=== PATIENT | male | born 1975 | race Caucasian/White ===

== ENCOUNTER 2017-06-25 21:51 | Emergency (ER) | payer BC, OTHER ==
[2017-06-25 21:57] VITALS: BP 169/91; PULSE 83; TEMP 98.4; BMI 37.2
--- NOTE | 2017-06-25 22:37 | PDOC ---
History of Present Illness - General History Source: Patient Exam Limitations: No Limitations - History of Present Illness Initial Comments: The patient is a 41 yo M with a past medical history significant for HTN, GERD, mitral regurg who presents with shooting L chest and L arm pain. The patient states the pain comes every 10 seconds. The patient states he pulled his daughter out of a canal she fell in 2 days ago. The patient also notes he just got back from a trip to [place] yesterday. The patient also notes his father and cousin presented with similar symptoms and were both diagnosed with ID. The patient denies lightheadedness and palpitations. The patient denies nausea, vomiting, diarrhea and abdominal pain. The patient denies fevers and chills. PCP: Dr. Emil Hector <Estefanía Tompkins - Last Filed: 06/25/17 22:48> <Valentine Kenny - Last Filed: 06/26/17 02:13> - General Chief Complaint: Pain Stated Complaint: PAIN IN LT ARM Time Seen by Provider: 06/25/17 22:13 Past History <Estefanía Tompkins - Last Filed: 06/25/17 22:48> - Past Medical History HTN: Yes Suicide Attempt (Hx): No - Psycho/Social/Smoking Cessation Hx Anxiety: No Suicidal Ideation: No Smoking Status: No Smoking History: Never smoked Number of Cigarettes Smoked Daily: 0 <Valentine Kenny - Last Filed: 06/26/17 02:13> - Past Medical History Allergies/Adverse Reactions: Allergies Allergy/AdvReac Type Severity Reaction Status Date / Time No Known Allergies Allergy Verified 06/25/17 21:57 Home Medications: Ambulatory Orders Amlodipine Besylate [Norvasc -] 10 mg PO DAILY 06/26/17 Hydrochlorothiazide [Hctz -] 12.5 mg PO BID 06/26/17 Metoprolol/Hydrochlorothiazide [Lopressor Hct 50-25 Tablet] 1 each PO BID Pantoprazole Sodium 40 mg PO DAILY 06/26/17 Review of Systems - Review of Systems Able to Perform ROS?: Yes Comments:: GENERAL/CONSTITUTIONAL: No fever or chills. No weakness. HEAD, EYES, EARS, NOSE AND THROAT: No change in vision. No ear pain or discharge. No sore throat. CARDIOVASCULAR: +chest pain, shooting L arm pain. No shortness of breath. RESPIRATORY: No cough, wheezing, or hemoptysis. GASTROINTESTINAL: No nausea, vomiting, diarrhea or constipation. GENITOURINARY: No dysuria, frequency, or change in urination. MUSCULOSKELETAL: No joint or muscle swelling or pain. No neck or back pain. SKIN: No rash NEUROLOGIC: No headache, vertigo, loss of consciousness, or change in strength/ sensation. ENDOCRINE: No increased thirst. No abnormal weight change. HEMATOLOGIC/LYMPHATIC: No anemia, easy bleeding, or history of blood clots. ALLERGIC/IMMUNOLOGIC: No hives or skin allergy. <Estefanía Tompkins - Last Filed: 06/25/17 22:48> *Physical Exam - Vital Signs Last Vital Signs Temp Pulse Resp BP Pulse Ox 98.4 F 83 18 169/91 99 06/25/17 21:53 06/25/17 21:53 06/25/17 21:53 06/25/17 21:53 06/25/17 21:53 <Estefanía Tompkins - Last Filed: 06/25/17 22:48> - Vital Signs Last Vital Signs Temp Pulse Resp BP Pulse Ox 98.4 F 83 18 169/91 99 06/25/17 21:53 06/25/17 21:53 06/25/17 21:53 06/25/17 21:53 06/25/17 21:53 - Physical Exam Comments: GENERAL: Awake, alert, and fully oriented, in no acute distress HEAD: No signs of trauma EYES: PERRLA, EOMI, sclera anicteric, conjunctiva clear ENT: Auricles normal inspection, hearing grossly normal, nares patent, oropharynx clear without exudates. Moist mucosa NECK: Normal ROM, supple, no lymphadenopathy, JVD, or masses LUNGS: Breath sounds equal, clear to auscultation bilaterally. No wheezes, and no crackles HEART: Regular rate and rhythm, normal S1 and S2, no murmurs, rubs or gallops ABDOMEN: Soft, nontender, normoactive bowel sounds. No guarding, no rebound. No masses EXTREMITIES: Normal range of motion, no edema. No clubbing or cyanosis. No cords, erythema, or tenderness NEUROLOGICAL: Cranial nerves II through XII grossly intact. Normal speech, normal gait SKIN: Warm, Dry, normal turgor. +Vesicular rash in dermatomal distribution to L arm. <Valentine Kenny - Last Filed: 06/26/17 02:13> Heart Score/ECG Review - History History: Slightly suspicious - Electrocardiogram EKG: Normal - Age Age: </= 45 - Risk Factors Risk Factors Heart Score: Yes Hx Hypertension, Yes Positive family hx of cardiac disease Based on the list above the patient has:: 1-2 risk factors - Troponin Troponin: </= normal limit - Score Heart Score - Total: 1 - ECG Impressions Comment:: EKG read 22:46- NSR 85 bpm. +LVH. <Valentine Kenny - Last Filed: 06/26/17 02:13> ED Treatment Course - LABORATORY CBC & Chemistry Diagram: 06/25/17 23:11 06/25/17 23:11 <Valentine Kenny - Last Filed: 06/26/17 02:13> *DC/Admit/Observation/Transfer - Attestations Scribe Attestion: Documentation prepared by Estefanía Tompkins, acting as medical oncologist for Valentine Kenny MD, MD/DO. <Estefanía Tompkins - Last Filed: 06/25/17 22:48> - Discharge Dispostion Admit: No <Valentine Kenny - Last Filed: 06/26/17 02:13> Diagnosis at time of Disposition: Shingles Qualifiers: Herpes zoster complications: without complications Qualified Code(s): B02.9 - Zoster without complications - Discharge Dispostion Disposition: HOME Condition at time of disposition: Stable - Referrals Referrals: Emil Majano [Primary Care Provider] - - Patient Instructions Printed Discharge Instructions: DI for Shingles
[2017-06-26 00:25] LABS: BASOPHIL 1.1 % (0-2.0); EOSINOPHIL 2.4 % (0-4.5); MCH 28.3 pg (25.7-33.7); MCHC 34.2 g/dl (32.0-35.9); MEAN CELL VOLUME 82.9 fl (80-96); MEAN PLT VOLUME 9.7 fl (7.5-11.1); PLATELET COUNT 193 K/MM3 (134-434); RDW 15.2 % (11.9-15.9); WHITE BLOOD COUNT 5.5 K/mm3 (4.0-10.0)
[2017-06-26 00:55] LABS: ALBUMIN 3.8 g/dl (3.4-5.0); ALK PHOS 64 U/L (45-117); ANION GAP 9 (8-16); BILIRUBIN,TOTAL 0.4 mg/dL (0.2-1.0); CALCIUM 8.7 mg/dL (8.5-10.1); CO2 29 mmol/L (21-32); GLUCOSE,RANDOM 94 mg/dL (74-106); SGOT/AST 32 U/L (15-37); SGPT/ALT 68 U/L (12-78); TOT PROT 7.3 g/dl (6.4-8.2)
[2017-06-26 00:58] LABS: CPK 92 IU/L (39-308); TROPONIN I < 0.02 ng/ml (0.00-0.05)
--- NOTE | 2017-06-26 17:37 | EKG ---
Test Reason : Blood Pressure : / mmHG Vent. Rate : 085 BPM Atrial Rate : 085 BPM P-R Int : 146 ms QRS Dur : 100 ms QT Int : 370 ms P-R-T Axes : 021 016 005 degrees QTc Int : 440 ms NORMAL SINUS RHYTHM MINIMAL VOLTAGE CRITERIA FOR LVH, MAY BE NORMAL VARIANT POOR R PROGRESSION V1-V3 MAY BE DUE TO TECHNICAL AND OR POSTIONAL REASONS,CANNOT EXCLUDE AN ANTEROSEPTAL CA OF INDETERMINATE AGE CLINLCAL CORRELATION AND REPEAT INDICATED NO PREVIOUS ECGS AVAILABLE Confirmed by ALEJO KING MD ([id number]) on 06/26/2017 5:36:54 PM Referred By: Confirmed By:ALEJO KING MD
== END 2017-06-26 00:45 | disposition home or self-care (01) ==
LOC: JER 21:51
DX: B02.9 Zoster without complications (principal); I10 Essential (primary) hypertension; K21.9 Gastro-esophageal reflux disease without esophagitis
CPT/HCPCS: 36415; 71010-TC; 80053; 84484; 85025; 93005; 93010; 99282-25